=== PATIENT | male | born 1975 | race African-American/Black ===

== ENCOUNTER 2024-04-26 20:12 | Emergency (ER) | payer SELFPAY ==
[2024-04-26] MEDS ORDERED: Boostrix 0.5 ML (Tdap) VIAL (>/=7 yrs of age) ONE (23:50)
[2024-04-27] MEDS ORDERED: Lidocaine 1% PF 5 ML VIAL ONE (00:32)
[2024-04-27] MEDS ORDERED: Bacitracin 1 PK ONE (00:32)
== END 2024-04-27 01:05 | disposition home or self-care (01) ==
LOC: CSHERS 20:12
DX: S61.215A Laceration without foreign body of left ring finger without damage to nail, initial encounter (principal); Z23 Encounter for immunization; Z87.891 Personal history of nicotine dependence; W26.0XXA Contact with knife, initial encounter
CPT/HCPCS: 12001; 90471; 90715